=== PATIENT | male | born 1945 | race Caucasian/White ===

== ENCOUNTER 2018-05-09 09:30 | Inpatient (IN) ==
[2018-05-09] MEDS ORDERED: FUROSEMIDE 10 MG/ML VIAL IV ONE (09:40)
[2018-05-09] MEDS ORDERED: FUROSEMIDE 10 MG/ML VIAL ONE (09:41)
--- NOTE | 2018-05-09 09:44 | ERNOTE ---
Dyspnea - General Presenting Symptoms: shortness of breath Time Seen by Provider: 05/09/18 09:31 Source: patient Exam Limitations: no limitations - Immun/Allergies/Home Medications Allergies/Adverse Reactions: Allergies atorvastatin [From Lipitor] Adverse Reaction (Mild, Verified 05/09/18 12:03) LEG CRAMPS choline fenofibrate [From Trilipix] Adverse Reaction (Mild, Verified 05/09/18 12:03) Muscle Pain hydrochlorothiazide Adverse Reaction (Mild, Verified 05/09/18 12:03) JOINT PAIN lisinopril Adverse Reaction (Mild, Verified 05/09/18 12:03) JOINT PAIN Home Medications: HOME MEDICATIONS Allopurinol [Zyloprim] 300 mg PO DAILY 05/09/18 [Last Taken 05/09/18] Aspirin [Aspirin EC] 81 mg PO DAILY 05/09/18 [Last Taken 05/09/18] Cholecalciferol [Vitamin D] 1,000 unit PO DAILY 05/09/18 [Last Taken 05/09/18] Enalapril/Hydrochlorothiazide [Enalapril-Hctz 10-25 mg Tablet] 1 each PO DAILY 05/09/18 [Last Taken 05/09/18] Glucosamine HCl 1,500 mg PO BID 05/09/18 [Last Taken 05/09/18] Meloxicam 7.5 mg PO DAILY 05/09/18 [Last Taken 05/09/18] Metoprolol Tartrate [Lopressor] 25 mg PO DAILY 05/09/18 [Last Taken 05/09/18] Multivitamin [Multivitamins] 1 each PO DAILY 05/09/18 [Last Taken 05/09/18] [place]-3 Fatty Acids/Fish Oil [Fish Oil 1,000 mg Capsule] 1 each PO DAILY 05/09/18 [Last Taken 05/09/18] Potassium Chloride 10 meq PO DAILY 05/09/18 [Last Taken 05/09/18] Tiotropium [place] [Spiriva] 1 cap IH DAILY 05/09/18 [Last Taken 05/09/18] - History of Present Illness Narrative: Patient has had increasing shortness of breath over the last week, worse with exertion, better at rest, denies chest pain , no cough or URI symptoms also has had leg edema, breathing treatments have not helped. He has a history of COPD and CHF, no home O2 Treatment [employer]: albuterol Initiating event: Denies: upper resp illness, out of meds, exposure to smoke Frequency of episodes: Reports: no prior episodes Modifying Factors - (Improves): Reports: rest Modifying Factors (Worsens): Reports: activity Associated Symptoms-Dyspnea: Denies: fever/chills, chest pain/discomfort, cough Prior Treatment: Denies: recently seen, currently on antibiotics Review of Systems - Review of Systems Constitutional: Absent: recent illness, fever ENT: Absent: nose congestion, sore throat Respiratory: Present: shortness of breath. Absent: cough Cardiology: Absent: chest pain Gastrointestinal/Abdominal: Absent: nausea, abdominal pain Genitourinary: Present: no symptoms reported Musculoskeletal: Absent: back pain Skin: Absent: rash Neurological: Absent: headache Medical History (Last Reviewed 05/09/18 @ 12:26 by Alexandria Lamb MD) Anxiety Bilateral pneumonia CHF (congestive heart failure) COPD (chronic obstructive pulmonary disease) Cardiomegaly Gout Normal colonoscopy Surgical History: Surgical History (Last Reviewed 05/09/18 @ 12:26 by Alexandria Lamb MD) Hx of appendectomy H/O ventral hernia repair Family History: Family History (Last Updated 05/09/18 @ 12:02 by Celina Liriano RN) Mother CVA (cerebral vascular accident) Father Social History: Preferred Language Macedonian Abuse History No History of abuse Psych History Hx of Anxiety Physical Exam - Physical Exam General Appearance: Present: wd/wn, alert, mild distress, obese Respiratory: Present: no accessory muscle use, lungs clear, decreased breath sounds, expiration (prolonged) Cardiovascular/Chest: Present: regular rate, rhythm, no murmur Gastrointestinal/Abdominal: Present: nontender, soft Extremity Exam: Present: extremity edema - bilateral lowerleg Neurological Exam: Present: alert, oriented, normal mood/affect Skin Exam: Present: warm/dry, cyanosis - lips blue ED Progress - Results and Orders Patient's Lab Results:: I have reviewed the patient's lab results. - Vital Signs Patient's Vital Signs:: I have reviewed the patient's vital signs. - EKG EKG: atrial fibrillation, no ST T wave changes, unchanged from - 09/2017 EKG read: Interp. by me - X-Ray X-Ray #1 X-Ray: chest - 1. Cardiomegaly, and vascular congestion/interstitial edema suggested. Correlate clinically for congestive heart failure. Interpretation: Reviewed by me - Progress/Reassessment Progress Note-Subjective: 05/09/18 10:37 improved symptoms after 40mg of lasix IV feels better, O2 sats above 90 on 2liters O2 discussed admission, patient agreed 05/09/18 11:[address] Martin, okay to admit for CHF exacerbation, will order lasix and further testing Departure Clinical Impression: CHF (congestive heart failure) Qualifiers: Heart failure type: unspecified Heart failure chronicity: unspecified Qualified Code(s): I50.9 - Heart failure, unspecified - Departure Disposition: Still a patient Condition: Stable
[2018-05-09 09:56] LABS: Hematocrit 53.1 % (42.0-52.0); Hemoglobin 15.4 gm/dL (13.5-18.0); Mean Cell Volume 100.6 fl (78-100); Mean Corpuscular Hemoglobin 29.2 pg (27-31); Mean Platelet Volume 9.6 fl (8-11.3); Neutrophil # 5.4 K/mm3 (1.3-6.0); Neutrophil % 75.7 % (42-75.0); Platelet Count 175 K/mm3 (150-450); Red Blood Count 5.28 M/mm3 (4.7-6.0); Red Cell Distribution Width 14.2 % (11.5-14.0); White Blood Count 7.1 K/mm3 (4.0-10.5)
[2018-05-09 10:14] LABS: ALT 32 U/L (19-67); AST 24 U/L (0-48); Albumin * 3.2 gm/dl (3.4-5.0); Alkaline Phosphatase * 89 U/L (50-170); Anion Gap 6.3 mmol/L (6.8-13.8); BNP * 2274 pg/mL (5-350); BUN/Creatinine Ratio 30.5 (9.0-21.6); Bilirubin, Total 0.4 mg/dL (0.0-1.1); Blood Urea Nitrogen 46 mg/dL (6-23); Ca. Corrected For Albumin 8.6 mg/dL (8.4-10.2); Calcium * 8.3 mg/dL (7.9-10.9); Carbon Dioxide 36.4 mmol/L (24-32.6); Chloride 98 mmol/L (97-106); Glucose * 167 mg/dL (70-110); Potassium 5.7 mmol/L (3.4-4.6); Sodium 135 mmol/L (132-142); Total Protein 6.6 gm/dL (6.2-8.2)
[2018-05-09 10:15] LABS: Troponin I Less than 0.017 ng/mL (0.00-0.10)
--- NOTE | 2018-05-09 12:33 | HP ---
Chief Complaint - Chief Complaint Date of Service: 05/09/18 Time of Service: 12:16 Chief Complaint: shortness of breath History of Present Illness: Gordon Lindsey, is a 72-year-old white male, with previous medical history of hypertension, congestive heart failure, gout, hyperlipidemia, COPD, obstructive sleep apnea, Atrial Fibrillation who was admitted on 05/09/2018 because of shortness of breath. One week prior to admission the patient started getting more short of breath with exertion. He also noticed that he has been gaining weight and has been having swelling in his legs. He denies orthopnea and he says he sleeps on the side. He denies any coughing, fever or chills, or upper respiratory tract signs and symptoms. He has been using his inhalers and has not had any relief with it. He went to our emergency room where he was found to have elevated BNP of 1999 2073, elevated potassium of 5.7, troponin of less than 0.017.. His chest x-ray showed cardiomegaly with vascular congestion/interstitial edema. His EKG showed atrial fibrillation with possible anterior myocardial infarction infarction probably old. He was given 1 dose of IV Lasix and admitted for further evaluation and treatment. He does admit that he has been eating extra meal every night before going to sleep. Medical History (Last Reviewed 05/09/18 @ 12:26 by Alexandria Lamb MD) Anxiety Bilateral pneumonia CHF (congestive heart failure) COPD (chronic obstructive pulmonary disease) Cardiomegaly Gout Normal colonoscopy Surgical History: Surgical History (Last Reviewed 05/09/18 @ 12:26 by Alexandria Lamb MD) Hx of appendectomy H/O ventral hernia repair Family History: Family History (Last Updated 05/09/18 @ 12:02 by Celina Liriano RN) Mother CVA (cerebral vascular accident) Father Social History: Preferred Language Vietnamese Do you have any rastafarian or No cultural preference? Smoking Status Former smoker Have you smoked in the past 12 No months Do you dip or chew tobacco No Abuse History No History of abuse Psych History Hx of Anxiety Alcohol Use none Drug Use none Review Of Systems (GEN) - Review of Systems Generalized/Overall Review: Absent: Weakness, Chills, Fever Respiratory: Present: Cough, Shortness of Breath. Absent: Orthopnea, Wheezing Cardiac: Present: Edema. Absent: Chest Pain, Palpitations Abdominal: Absent: Nausea, Vomiting Genitourinary: Absent: Urgency, Frequency Musculoskeletal: Present: Joint Pain Immunizations: IMMUNIZATION HX Immunizations Up to Date Yes History of Influenza Vaccine More Information Required Hx Pneumococcal Vaccination More Information Required Allergies/Adverse Reactions: Allergies Allergy/AdvReac Type Severity Reaction Status Date / Time atorvastatin [From Lipitor] AdvReac Mild LEG CRAMPS Verified 05/09/18 12:03 choline fenofibrate AdvReac Mild Muscle Pain Verified 05/09/18 12:03 [From Trilipix] hydrochlorothiazide AdvReac Mild JOINT PAIN Verified 05/09/18 12:03 lisinopril AdvReac Mild JOINT PAIN Verified 05/09/18 12:03 Home Medications: HOME MEDICATIONS Allopurinol [Zyloprim] 300 mg PO DAILY 05/09/18 [Last Taken 05/09/18] Aspirin [Aspirin EC] 81 mg PO DAILY 05/09/18 [Last Taken 05/09/18] Cholecalciferol [Vitamin D] 1,000 unit PO DAILY 05/09/18 [Last Taken 05/09/18] Enalapril/Hydrochlorothiazide [Enalapril-Hctz 10-25 mg Tablet] 1 each PO DAILY 05/09/18 [Last Taken 05/09/18] Glucosamine HCl 1,500 mg PO BID 05/09/18 [Last Taken 05/09/18] Meloxicam 7.5 mg PO DAILY 05/09/18 [Last Taken 05/09/18] Metoprolol Tartrate [Lopressor] 25 mg PO DAILY 05/09/18 [Last Taken 05/09/18] Multivitamin [Multivitamins] 1 each PO DAILY 05/09/18 [Last Taken 05/09/18] [place]-3 Fatty Acids/Fish Oil [Fish Oil 1,000 mg Capsule] 1 each PO DAILY 05/09/18 [Last Taken 05/09/18] Potassium Chloride 10 meq PO DAILY 05/09/18 [Last Taken 05/09/18] Tiotropium [place] [Spiriva] 1 cap IH DAILY 05/09/18 [Last Taken 05/09/18] Exam - Exam Vital Signs: Vital Signs - Last Taken Temp 36.4 C 05/09/18 11:58 Pulse 88 05/09/18 11:58 Resp 20 05/09/18 11:58 BP 131/68 05/09/18 11:58 Pulse Ox 95 05/09/18 11:58 Constitutional: Present: Alert, Oriented x3, Cooperative, Other ENT Exam: Present: hearing grossly normal Eye Exam: bilateral eye: normal inspection, PERRL, EOMI Neck: Present: supple Respiratory: Present: decreased breath sounds, rales, No wheezing Cardiovascular/Chest: Present: no JVD, systolic murmur, irregularly irregular Abdomen: Present: Normal bowel sounds, soft, nontender, obese Extremity: Present: no calf tenderness, lower extremity edema Diagnostic Studies: Abnormal Lab Results 05/09/18 05/09/18 Range/Units 09:45 09:45 Hct 53.1 H (42.0-52.0) % MCV 100.6 H (78-100) fl MCHC 29.0 L (32-36) g/dl RDW 14.2 H (11.5-14.0) % Neutrophils % 75.7 H (42-75.0) % Lymphocytes % 10.3 L (20-51) % Monocytes % 10.7 H (0.0-9) % Lymphocytes # 0.73 L (1.5-3.5) k/mm3 Potassium 5.7 H (3.4-4.6) mmol/L Carbon Dioxide 36.4 H (24-32.6) mmol/L Anion Gap 6.3 L (6.8-13.8) mmol/L BUN 46 H D (6-23) mg/dL Creatinine 1.51 H (0.4-1.4) mg/dL Est GFR (Non-Af Amer) 48 L D (60-130) mL/min BUN/Creatinine Ratio 30.5 H (9.0-21.6) Random Glucose 167 H (70-110) mg/dL B-Natriuretic Peptide 2274 H (5-350) pg/mL Albumin 3.2 L (3.4-5.0) gm/dl Laboratory Results WBC 7.1 K/mm3 (4.0-10.5) 05/09/18 09:45 RBC 5.28 M/mm3 (4.7-6.0) 05/09/18 09:45 Hgb 15.4 gm/dL (13.5-18.0) 05/09/18 09:45 Hct 53.1 % (42.0-52.0) H 05/09/18 09:45 MCV 100.6 fl (78-100) H 05/09/18 09:45 MCH 29.2 pg (27-31) 05/09/18 09:45 MCHC 29.0 g/dl (32-36) L 05/09/18 09:45 RDW 14.2 % (11.5-14.0) H 05/09/18 09:45 Plt Count 175 K/mm3 (150-450) 05/09/18 09:45 MPV 9.6 fl (8-11.3) 05/09/18 09:45 Immature Gran % (Auto) 0.30 % (0.001-0.429) 05/09/18 09:45 Immature Gran # (Auto) 0.02 K/mm3 (0.000-0.0310) 05/09/18 09:45 Neutrophils % 75.7 % (42-75.0) H 05/09/18 09:45 Lymphocytes % 10.3 % (20-51) L 05/09/18 09:45 Monocytes % 10.7 % (0.0-9) H 05/09/18 09:45 Eosinophils % 2.0 % (0.0-3.0) 05/09/18 09:45 Basophils % 1.0 % (0.0-1.0) 05/09/18 09:45 Nucleated RBC % 0.0 k/mm3 (0-1) 05/09/18 09:45 Neutrophils # 5.4 K/mm3 (1.3-6.0) 05/09/18 09:45 Lymphocytes # 0.73 k/mm3 (1.5-3.5) L 05/09/18 09:45 Monocytes # 0.8 k/mm3 (0.0-1.0) 05/09/18 09:45 Eosinophils # 0.1 k/mm3 (0.0-0.7) 05/09/18 09:45 Absolute Basophils 0.1 k/mm3 (0.0-0.1) 05/09/18 09:45 Sodium 135 mmol/L (132-142) 05/09/18 09:45 Plasma Sodium 136 mmol/L (130-142) 05/09/18 09:45 Potassium 5.7 mmol/L (3.4-4.6) H 05/09/18 09:45 Chloride 98 mmol/L (97-106) 05/09/18 09:45 Carbon Dioxide 36.4 mmol/L (24-32.6) H 05/09/18 09:45 Anion Gap 6.3 mmol/L (6.8-13.8) L 05/09/18 09:45 BUN 46 mg/dL (6-23) H D 05/09/18 09:45 Creatinine 1.51 mg/dL (0.4-1.4) H 05/09/18 09:45 Est GFR (Non-Af Amer) 48 mL/min (60-130) L D 05/09/18 09:45 BUN/Creatinine Ratio 30.5 (9.0-21.6) H 05/09/18 09:45 Random Glucose 167 mg/dL (70-110) H 05/09/18 09:45 Calcium 8.3 mg/dL (7.9-10.9) 05/09/18 09:45 Calcium Adj for Albumin 8.6 mg/dL (8.4-10.2) 05/09/18 09:45 Total Bilirubin 0.4 mg/dL (0.0-1.1) 05/09/18 09:45 AST 24 U/L (0-48) 05/09/18 09:45 ALT 32 U/L (19-67) 05/09/18 09:45 Alkaline Phosphatase 89 U/L (50-170) 05/09/18 09:45 Troponin I Less than 0.017 ng/mL (0.00-0.10) 05/09/18 09:45 B-Natriuretic Peptide 2274 pg/mL (5-350) H 05/09/18 09:45 Total Protein 6.6 gm/dL (6.2-8.2) 05/09/18 09:45 Albumin 3.2 gm/dl (3.4-5.0) L 05/09/18 09:45 Assessment/Plan - Assessment/Plan (1) Acute exacerbation of CHF (congestive heart failure) Assessment: Echo in 10/2017 shows mild LVH, Ef of 50-55 %, positive diastolic dysfunction, mild to moderate MR, mild TR, RSVP of 41. Will continue with IV lasix. Problem: Acute Qualifiers: Heart failure type: combined systolic and diastolic Qualified Code(s): I50.43 - Acute on chronic combined systolic (congestive) and diastolic (congestive) heart failure (2) Afib Assessment: ChadsVasc score of 4 with 8.7% of CVA. prefers to be on ASA instead on anticioagualtion and rrate control instead of rhytm control as discussed in the office when he was found t be in AFib Problem: Chronic Qualifiers: Atrial fibrillation type: chronic Qualified Code(s): I48.2 - Chronic atrial fibrillation (3) Hypertension Problem: Chronic Qualifiers: Hypertension type: essential hypertension Qualified Code(s): I10 - Essential (primary) hypertension (4) Hyperlipidemia Problem: Chronic (5) Morbid obesity Problem: Chronic (6) COPD (chronic obstructive pulmonary disease) Problem: Chronic (7) CATHERINE (obstructive sleep apnea) Problem: Acute
[2018-05-09] MEDS ORDERED: ALBUTEROL SULFATE 2.5 MG/0.5 ML VIAL.NEB IH PRN (13:00)
[2018-05-09] MEDS ORDERED: POTASSIUM CHLORIDE 10 MEQ TABLET.SA PO SCH (17:00)
[2018-05-09] MEDS: GLUCOSAMINE HCL 1500 MG PO SCH (21:37)
[2018-05-09] MEDS: FUROSEMIDE 10 MG/ML VIAL IV SCH (21:45)
[2018-05-10 05:29] LABS: Hematocrit 56.6 % (42.0-52.0); Hemoglobin 16.7 gm/dL (13.5-18.0); Mean Cell Volume 99.8 fl (78-100); Mean Corpuscular Hemoglobin 29.5 pg (27-31); Mean Corpuscular Hgb Conc 29.5 g/dl (32-36); Mean Platelet Volume 10.3 fl (8-11.3); Neutrophil # 6.3 K/mm3 (1.3-6.0); Neutrophil % 75.6 % (42-75.0); Platelet Count 180 K/mm3 (150-450); Red Blood Count 5.67 M/mm3 (4.7-6.0); Red Cell Distribution Width 14.1 % (11.5-14.0); White Blood Count 8.4 K/mm3 (4.0-10.5)
[2018-05-10 05:44] LABS: Anion Gap 2.7 mmol/L (6.8-13.8); BUN/Creatinine Ratio 29.1 (9.0-21.6); Calcium * 8.8 mg/dL (7.9-10.9); Carbon Dioxide 39.7 mmol/L (24-32.6); Estimated Creat Clear 49.7; Potassium 5.4 mmol/L (3.4-4.6)
[2018-05-10] MEDS: TIOTROPIUM BROMIDE 5 CAP INHALER IH SCH (08:18)
[2018-05-10] MEDS: MULTIVITAMINS 1 CAP CAPSULE PO SCH (08:19)
[2018-05-10] MEDS: ASPIRIN 81 MG TABLET.DR PO SCH (08:19)
[2018-05-10] MEDS: METOPROLOL SUCCINATE 25 MG TABLET.SA PO SCH (08:20)
[2018-05-10] MEDS: CHOLECALCIFEROL 1,000 UNIT CAPSULE PO SCH (08:20)
[2018-05-10] MEDS: FUROSEMIDE 10 MG/ML VIAL IV SCH ×2 (08:23→22:07)
[2018-05-10] MEDS: GLUCOSAMINE HCL 1500 MG PO SCH ×2 (09:40→20:35)
[2018-05-10] MEDS: ENALAPRIL MALEATE 5 MG TABLET PO SCH (09:50)
[2018-05-10] MEDS: ENOXAPARIN SODIUM 40 MG/0.4 ML SYRG SC SCH (12:39)
--- NOTE | 2018-05-10 18:10 | PN ---
Subjective - Date and Time Seen Date: 05/10/18 Time: 08:00 Subjective Narrative: Patient resting in bed at the time of my exam. He states he has shortness of breath, especially with minimal activity. Overall, he states he feels about the same as he did when he was admitted yesterday. Objective - Review of Systems Generalized/Overall Review: Reports: Fatigue Respiratory: Reports: Shortness of Breath Cardiac: Reports: Edema. Denies: Chest Pain Misc: All systems neg except as marked - Vitals Vitals: Last Vital Signs Temp 36.5 C 05/10/18 14:56 Pulse 82 05/10/18 14:56 Resp 18 05/10/18 14:56 BP 108/75 05/10/18 14:56 Pulse Ox 91 L 05/10/18 14:56 - Abnormal Lab Findings Abnormal Lab Findings: Abnormal Lab Results 05/10/18 05/10/18 Range/Units 05:05 05:05 Hct 56.6 H (42.0-52.0) % MCHC 29.5 L (32-36) g/dl RDW 14.1 H (11.5-14.0) % Neutrophils % 75.6 H (42-75.0) % Lymphocytes % 8.4 L (20-51) % Monocytes % 11.7 H (0.0-9) % Basophils % 1.1 H (0.0-1.0) % Neutrophils # 6.3 H (1.3-6.0) K/mm3 Lymphocytes # 0.70 L (1.5-3.5) k/mm3 Potassium 5.4 H (3.4-4.6) mmol/L Carbon Dioxide 39.7 H (24-32.6) mmol/L Anion Gap 2.7 L (6.8-13.8) mmol/L BUN 41 H (6-23) mg/dL Creatinine 1.41 H (0.4-1.4) mg/dL Est GFR (Non-Af Amer) 52 L (60-130) mL/min BUN/Creatinine Ratio 29.1 H (9.0-21.6) - Exam Constitutional: Present: Alert, Oriented x3, Cooperative, No distress, Morbidly obese ENT Exam: Present: moist mucous membranes Respiratory: Present: decreased breath sounds Cardiovascular/Chest: Present: regular rate, rhythm, edema Abdomen: Present: soft, nontender, obese Extremity: Present: lower extremity edema Skin Exam: Present: warm/dry Neurologic: Present: alert, normal mood/affect, oriented x 3 Appearance: Present: appropriate appearance, appropriate insight Eye contact: Present: cooperative, good eye contact, normal speech Thoughts: Present: normal thought pattern, no apparent hallucination Assessment/Plan Plan Narrative: Patient hypoxic at rest with marked desaturation down to the 70s with minimal activity. Titrate oxygen with goal SpO2 88-92%. IV Lasix this AM. Strict I&O. Daily standing weight. Recheck labs including BMP and BNP in AM. - Problems/Diagnosis (1) Acute exacerbation of CHF (congestive heart failure) Problem: Acute Qualifiers: Heart failure type: combined systolic and diastolic Qualified Code(s): I50.43 - Acute on chronic combined systolic (congestive) and diastolic (congestive) heart failure (2) Chronic combined systolic and diastolic CHF (congestive heart failure) Problem: Chronic
[2018-05-11 05:45] LABS: BNP * 987 pg/mL (5-350); BUN/Creatinine Ratio 30.7 (9.0-21.6); Blood Urea Nitrogen 35 mg/dL (6-23); Calcium * 8.7 mg/dL (7.9-10.9); Carbon Dioxide 40.6 mmol/L (24-32.6); Chloride 98 mmol/L (97-106); Estimated Creat Clear 61.5; Glucose * 101 mg/dL (70-110); Potassium 5.1 mmol/L (3.4-4.6); Sodium 134 mmol/L (132-142)
[2018-05-11] MEDS: TIOTROPIUM BROMIDE 5 CAP INHALER IH SCH (08:12)
[2018-05-11] MEDS: CHOLECALCIFEROL 1,000 UNIT CAPSULE PO SCH (08:12)
[2018-05-11] MEDS: MULTIVITAMINS 1 CAP CAPSULE PO SCH (08:12)
[2018-05-11] MEDS: GLUCOSAMINE HCL 1500 MG PO SCH (08:12)
[2018-05-11] MEDS: ASPIRIN 81 MG TABLET.DR PO SCH (08:12)
[2018-05-11] MEDS: METOPROLOL SUCCINATE 25 MG TABLET.SA PO SCH (08:14)
[2018-05-11] MEDS: FUROSEMIDE 10 MG/ML VIAL IV SCH (08:14)
[2018-05-11] MEDS: ENALAPRIL MALEATE 5 MG TABLET PO SCH (08:15)
[2018-05-11] MEDS: ENOXAPARIN SODIUM 40 MG/0.4 ML SYRG SC SCH (11:38)
--- NOTE | 2018-05-11 11:56 | DS ---
(1) Acute exacerbation of CHF (congestive heart failure) Problem: Resolved Qualifiers: Heart failure type: combined systolic and diastolic Qualified Code(s): I50.43 - Acute on chronic combined systolic (congestive) and diastolic (congestive) heart failure (2) Obesity hypoventilation syndrome Problem: Suspected (3) Morbid obesity Problem: Chronic (4) COPD (chronic obstructive pulmonary disease) Problem: Chronic (5) Chronic combined systolic and diastolic CHF (congestive heart failure) Problem: Chronic Description of Stay: HOSPITAL COURSE: The patient presented with SOB secondary to acute decompensation of heart failure. The patient was treated with IV lasix during his hospitalization with great response and overall net negative output. Prior to discharge, the patient's acute decompensation of his chronic CHF was resolved. The patient is hypoxic both at rest and with activity and will require 3 L of oxygen via nasal cannula continuously. It is quite likely that the patient will require lifelong oxygen. Overall, the patient was markedly improved at the time of discharge when compared to admission and he was discharged home in stable condition. Procedures Performed: none Results and Findings: Lab Pending Results 05/09/18 09:45: WBC 7.1, RBC 5.28, Hgb 15.4, Hct 53.1 H, MCV 100.6 H, MCH 29.2, MCHC 29.0 L, RDW 14.2 H, Plt Count 175, MPV 9.6, Immature Gran % (Auto) 0.30, Immature Gran # (Auto) 0.02, Neutrophils % 75.7 H, Lymphocytes % 10.3 L, Monocytes % 10.7 H, Eosinophils % 2.0, Basophils % 1.0, Nucleated RBC % 0.0, Neutrophils # 5.4, Lymphocytes # 0.73 L, Monocytes # 0.8, Eosinophils # 0.1, Absolute Basophils 0.1 05/09/18 09:45: Sodium 135, Plasma Sodium 136, Potassium 5.7 H, Chloride 98, Carbon Dioxide 36.4 H, Anion Gap 6.3 L, BUN 46 H D, Creatinine 1.51 H, Est GFR (Non-Af Amer) 48 L D, BUN/Creatinine Ratio 30.5 H, Random Glucose 167 H, Calcium 8.3, Calcium Adj for Albumin 8.6, Total Bilirubin 0.4, AST 24, ALT 32, Alkaline Phosphatase 89, Troponin I Less than 0.017, B-Natriuretic Peptide 2274 H, Total Protein 6.6, Albumin 3.2 L 05/10/18 05:05: WBC 8.4, RBC 5.67, Hgb 16.7, Hct 56.6 H, MCV 99.8, MCH 29.5, MCHC 29.5 L, RDW 14.1 H, Plt Count 180, MPV 10.3, Immature Gran % (Auto) 0.20, Immature Gran # (Auto) 0.02, Neutrophils % 75.6 H, Lymphocytes % 8.4 L, Monocytes % 11.7 H, Eosinophils % 3.0, Basophils % 1.1 H, Nucleated RBC % 0.0, Neutrophils # 6.3 H, Lymphocytes # 0.70 L, Monocytes # 1.0, Eosinophils # 0.3, Absolute Basophils 0.1 05/10/18 05:05: Sodium 137, Plasma Sodium 137, Potassium 5.4 H, Chloride 100, Carbon Dioxide 39.7 H, Anion Gap 2.7 L, BUN 41 H, Creatinine 1.41 H, Est GFR (Non-Af Amer) 52 L, BUN/Creatinine Ratio 29.1 H, Random Glucose 95 D, Calcium 8.8 05/11/18 05:10: Sodium 134, Plasma Sodium 134, Potassium 5.1 H, Chloride 98, Carbon Dioxide 40.6 H, Anion Gap Less than 1.0 L, BUN 35 H, Creatinine 1.14, Est GFR (Non-Af Amer) 67 D, BUN/Creatinine Ratio 30.7 H, Random Glucose 101, Calcium 8.7, B-Natriuretic Peptide 987 H Discharge Location: Home Disposition: Home self-care Condition: Stable Discharge Diet: Low salt, Low fat/chol Referrals: Gisela Martin MD [Primary Care Provider] - Problem Oriented Discharge Instructions to Patient/Family: Heart Failure, [id number] Additional Patient Instructions (free text): -Please make TCM appointment unless snf discharge. Thank you! Petra @ [phone]. -Follow-up with PCP within 1 week Prescriptions (Any new or edited meds): Furosemide [Lasix] 40 mg PO QAM #30 tablet Complete Home Medications List: Complete Home Medication List: Allopurinol [Zyloprim] 300 mg PO DAILY 05/09/18 Aspirin [Aspirin EC] 81 mg PO DAILY 05/09/18 Cholecalciferol [Vitamin D] 1,000 unit PO DAILY 05/09/18 Enalapril/Hydrochlorothiazide [Enalapril-Hctz 10-25 mg Tablet] 1 each PO DAILY 05/09/18 Glucosamine HCl 1,500 mg PO BID 05/09/18 Meloxicam 7.5 mg PO DAILY 05/09/18 Multivitamin [Multivitamins] 1 each PO DAILY 05/09/18 [place]-3 Fatty Acids/Fish Oil [Fish Oil 1,000 mg Capsule] 1 each PO DAILY 05/09/18 Potassium Chloride 10 meq PO DAILY 05/09/18 Tiotropium [place] [Spiriva] 1 cap IH DAILY 05/09/18 Furosemide [Lasix] 40 mg PO QAM #30 tablet 05/11/18 Metoprolol Succinate [Toprol Xl] 25 mg PO DAILY tablet.sa 05/11/18 Amb Orders for Discharge: Basic Metabolic Panel Time Frame: 1 Week, Location: Laboratory
[2018-05-11 17:23] VITALS: BP 133/82
== END 2018-05-11 17:48 | disposition home or self-care (01) | DRG 292 ==
LOC: MS 09:30 → ER 09:30 → MS 11:57
PROVIDERS: ADMIT Internal Medicine; ATTEND Internal Medicine
DX: I11.0 Hypertensive heart disease with heart failure
CPT/HCPCS: 36415; 71020; 71046; 80048; 80053; 83519; 83880; 84484; 85025; 93005; 94760; 96374; 99284